=== PATIENT | female | born 1940 | race Caucasian/White ===

== ENCOUNTER → 2017-01-07 | Outpatient (CLI) | payer MEDICARE ==
[~2017-01-07] MED LIST: AMBIEN10 MG PO; ANTI-DIARRHEAL2 M1 PO; ANTI-GAS40 MG/0.6 PO; ATIVAN; CALCIUM + D 6001 TA1 PO; CARAFATE PO; CARAFATE1 G PO; DEXILANT60 MG PO; FAMOTIDINE PO; FLAGYL PO; FLEXERIL10 MG PO; GAS RELIEF125 MG PO; KEFLEX500 MG PO; LORTAB 5/500 TA1 TA1 PO; METRONIDAZOLE PO; NO MEDICATIONS; OXYCODONE HCL5 MG PO; PANTOPRAZOLE SO40 MG PO; PREDNISONE PO; PREMARIN; PRILOSEC20 MG PO; PROTONIX; PROTONIX PO; SIMETHICONE125 M1 PO; TESSALON200 MG PO; TUMS500 M1 PO; TUMS500 MG PO; ULTRAM PO; VICODIN 5/500 T1 TAB; VITAMIN D31000 UNIT PO; ZITHROMAX1 G/PKT PO; ZOFRAN ODT4 MG PO
--- NOTE | ~2017-01-07 | MY11 ---
[facility] A Service of [facility] RADIOLOGY TEXT RESULTS PATIENT: JALYN BAKER LOCATION: [facility] : 38 UNIT #: [id number] AGE: [address]: Azul Miles MD SEX: F ORDER DR: [id number] [address] [address] [id number] O MR#: [id number] Acc #: [id number] NAME: JALYN BAKER : 1940 SEX: F STUDY DATE/TIME: 01/07/2017 9:58 UNIT: [facility] ROOM: STUDY DESCRIPTION: MY Mammogram Screening Dig Dustin Attending Physician: Azul Miles M.D. Referring Physician: Azul Miles M.D. Ordering Physician: Azul Miles M.D. Primary Care Physician: Azul Miles M.D. MEDICAL IMAGING REPORT This report is preliminary unless electronic signature is present. EXAM Digital screening mammogram, 01/07/2017 HISTORY 76-year-old woman positive family history, maternal aunt. Annual screening. COMPARISON 04/06/2006, 01/30/2009 FINDINGS Digital imaging of each breast was completed utilizing screening protocol. Review includes FDA-approved CAD device. Breast parenchyma is heterogeneously dense with subareolar duct prominence bilaterally. I see no interval occurring suspicious mass. There are no microcalcifications and no architectural deformity. IMPRESSION Stable benign mammogram. Annual screening recommended. Patients over the age of 40 are entered into a reminder system with target due date for the next mammogram. A result letter will also be sent to the patient. BIRADS: 2 Benign Finding Dictated by... Jr Noe M.D. THIS IS AN ELECTRONICALLY VERIFIED REPORT Jr Noe M.D. at 01/07/2017 12:38 PM Joi [facility] A Service [facility] RADIOLOGY TEXT RESULTS PATIENT: JALYN BAKER LOCATION: [facility] : 38 UNIT #: [id number] AGE: [address]: Azul Miles MD SEX: F ORDER DR: TD: 01/07/2017 10:34 JOB #: [id number] MEDICAL IMAGING REPORT Page 1 of 1
--- NOTE | ~2017-01-07 | US77 ---
[facility] A Service of [facility] & [facility] RADIOLOGY TEXT RESULTS PATIENT: JALYN BAKER LOCATION: [facility] : 38 UNIT #: [id number] AGE: [address]: Azul Miles MD SEX: F ORDER DR: [id number] [address] [address] [id number] O MR#: [id number] Acc #: [id number] NAME: JALYN BAKER : 1940 SEX: F STUDY DATE/TIME: 01/07/2017 9:51 UNIT: [facility] ROOM: STUDY DESCRIPTION: US Kidney Bilateral Complete Attending Physician: Azul Miles M.D. Referring Physician: Azul Miles M.D. Ordering Physician: Azul Miles M.D. Primary Care Physician: Azul Miles M.D. MEDICAL IMAGING REPORT This report is preliminary unless electronic signature is present. EXAM Renal ultrasound. DATE OF EXAM 01/07/2017 HISTORY Right flank pain for 2 years. FINDINGS The right kidney measures 10.7 cm while the left kidney measures 9.3 cm in longitudinal dimensions. There is no evidence of hydronephrosis or nephrolithiasis. There is an 11 mm nonshadowing echogenic nodule within the upper pole of the right renal cortex. This corresponds to a fat-containing lesion on noncontrast CT of the abdomen and pelvis performed 11/19/2013, and is characteristic of a renal angiomyolipoma. No cystic lesions are identified. There is normal renal cortical echogenicity. Images of the bladder are normal. IMPRESSION 1. 1.1 cm echogenic nodule in the upper pole cortex of the right kidney characteristic of a renal angiomyolipoma. Otherwise, negative renal ultrasound. No evidence of hydronephrosis. 2. Images of the bladder are normal. Dictated by... Angel Barreto M.D. THIS IS AN ELECTRONICALLY VERIFIED REPORT Angel Barreto M.D. at 01/08/2017 2:11 PM ANGELA/heidi STS. [facility] A Service of [facility] & [facility] RADIOLOGY TEXT RESULTS PATIENT: JALYN BAKER [id number] UNIT #: [id number] AGE: [address]: Azul Miles MD SEX: F ORDER DR: TD: 01/07/2017 20:55 JOB #: [id number] MEDICAL IMAGING REPORT Page 1 of 1
== END | disposition home or self-care (01) ==
LOC: SMAM 09:25
DX: Z12.31 Encounter for screening mammogram for malignant neoplasm of breast (principal); G47.10 Hypersomnia, unspecified; N28.89 Other specified disorders of kidney and ureter; Z80.3 Family history of malignant neoplasm of breast
CPT/HCPCS: 76775; G0202

== ENCOUNTER → 2017-04-15 | Outpatient (CLI) | payer MEDICARE ==
--- NOTE | ~2017-04-15 | CT57 ---
[facility] A Service [facility] RADIOLOGY TEXT RESULTS PATIENT: JALYN BAKER LOCATION: [facility] : 38 UNIT #: [id number] AGE: [address]: Azul Miles MD SEX: F ORDER DR: [id number] [place] [id number] [facility]. [place], [place] [address] [id number] O MR#: [id number] Acc #: [id number] NAME: JALYN BAKER. : 1940 SEX: F STUDY DATE/TIME: 04/15/2017 14:01 UNIT: [facility] ROOM: STUDY DESCRIPTION: CT Chest Wo Cont Attending Physician: Azul Miles M.D. Referring Physician: Azul Miles M.D. Ordering Physician: Azul Miles M.D. Primary Care Physician: Azul Miles M.D. MEDICAL IMAGING REPORT This report is preliminary unless electronic signature is present EXAM CT of the chest without contrast INDICATIONS Chest pain and fatigue for [address] of the chest was performed without contrast. Coronal and sagittal reformatted images were obtained. This CT exam was performed with one or more of the following radiation dose reduction techniques: automatic exposure control, adjustment of mA and/or kV according to patient size, and iterative reconstruction. COMPARISON STUDIES 01/02/2015. FINDINGS Stable benign micronodule in the right lower lobe. Scattered calcified granulomas. No airspace consolidation or suspicious pulmonary nodule. Stable large hiatal hernia. There is no suspicious lymphadenopathy. No pleural effusion. Limited imaging of the upper abdomen demonstrates a stable subcentimeter fat-density lesion in the right kidney, likely a tiny angiomyolipoma. It is unchanged since 2014. Bone windows demonstrate a mid-thoracic spine vertebral augmentation, stable. IMPRESSION 1. Large hiatal hernia. 2. No suspicious pulmonary nodule or airspace consolidation. Dictated by... [facility] A Service of [facility] RADIOLOGY TEXT RESULTS PATIENT: JALYN BAKER LOCATION: [facility] : 38 UNIT #: [id number] AGE: [address]: Azul Miles MD SEX: F ORDER DR: Sunil Arizmendi M.D. THIS IS AN ELECTRONICALLY VERIFIED REPORT Sunil Arizmendi M.D. at 04/17/2017 12:09 PM ARS/pcl TD: 04/16/2017 13:15 JOB #: [id number] MEDICAL IMAGING REPORT Page 1 of 1 COPY
== END | disposition home or self-care (01) ==
LOC: CECH 12:04
DX: R07.9 Chest pain, unspecified (principal); R53.83 Other fatigue; R06.02 Shortness of breath; K44.9 Diaphragmatic hernia without obstruction or gangrene; I36.1 Nonrheumatic tricuspid (valve) insufficiency; I51.89 Other ill-defined heart diseases
CPT/HCPCS: 71250; 93306